=== PATIENT | female | born 1985 | race Caucasian/White ===

== ENCOUNTER 2021-02-05 17:46 | Emergency (ER) | payer OTHER ==
[~2021-02-05 17:46] MED LIST: FLAGYL500 MG PO
[2021-02-05] MEDS ORDERED: NORFLEX 100 MG100 MG PO (18:22)
[2021-02-05] MEDS ORDERED: PREDNISONE50 MG PO (18:22)
== END 2021-02-05 19:17 | disposition home or self-care (01) ==
LOC: ER1 17:46
DX: M54.41 Lumbago with sciatica, right side (principal); Z88.0 Allergy status to penicillin; F17.210 Nicotine dependence, cigarettes, uncomplicated; Z20.822 Contact with and (suspected) exposure to COVID-19
CPT/HCPCS: 96372; 99283; J1885; J2930; U0002

== ENCOUNTER 2021-04-18 07:31 | Emergency (ER) | payer OTHER ==
[~2021-04-18 07:31] MED LIST changes: +NORFLEX 100 MG100 MG PO; +PREDNISONE50 MG PO
[2021-04-18] MEDS ORDERED: DIFLUCAN150 MG PO (08:36)
[2021-04-18] MEDS ORDERED: OMNICEF 300 MG300 MG PO (08:52)
[2021-04-18] MEDS ORDERED: FLAGYL500 MG PO (08:52)
[2021-04-19 23:09] LABS: CHLAMYDIA TRACHOMATIS, NAA Negative (Negative); NEISSERIA GONORRHOEAE, NAA Negative (Negative)
== END 2021-04-18 09:20 | disposition home or self-care (01) ==
LOC: ER1 07:31
PROVIDERS: Physician Assistant
DX: N76.0 Acute vaginitis (principal); N39.0 Urinary tract infection, site not specified; B96.89 Other specified bacterial agents as the cause of diseases classified elsewhere; Z20.2 Contact with and (suspected) exposure to infections with a predominantly sexual mode of transmission
CPT/HCPCS: 81001; 87077; 87086; 87186; 87210; 96372; 99283; J0696

== ENCOUNTER 2021-12-24 16:53 | Emergency (ER) | payer OTHER ==
[~2021-12-24 16:53] MED LIST changes: +AMOX TR-K CLV1 EAC4 PO; +DIFLUCAN150 MG PO; +KEPPRA 500 MG500 MG PO; +OMNICEF 300 MG300 MG PO
[2021-12-24 19:40] LABS: HEMOGLOBIN 12.9 gm/dl (12.3-15.3); RED BLOOD COUNT 4.77 M/UL (4.00-5.10); WHITE BLOOD COUNT 10.9 K/UL (4.5-11.0)
[2021-12-24 20:06] LABS: BUN/CREATININE RATIO 23 (0-10)
== END 2021-12-24 21:20 | disposition short-term general hospital (02) ==
LOC: ER1 16:53
PROVIDERS: Family Medicine
DX: L03.213 Periorbital cellulitis (principal); J32.0 Chronic maxillary sinusitis; K04.7 Periapical abscess without sinus; F17.200 Nicotine dependence, unspecified, uncomplicated
CPT/HCPCS: 80053; 85025; 96374; 96375; 96376; 99284; J2270; J2405; J2543

== ENCOUNTER 2022-03-22 14:53 | Emergency (ER) | payer OTHER ==
[2022-03-22 16:33] LABS: HEMOGLOBIN 12.2 gm/dl (12.3-15.3); WHITE BLOOD COUNT 7.9 K/UL (4.5-11.0)
[2022-03-22 16:50] LABS: BUN/CREATININE RATIO 25 (0-10)
== END 2022-03-22 19:45 | disposition home or self-care (01) ==
LOC: ER1 14:53
PROVIDERS: Preventive Medicine Occupational Medicine
DX: M46.44 Discitis, unspecified, thoracic region (principal); M46.24 Osteomyelitis of vertebra, thoracic region; F17.200 Nicotine dependence, unspecified, uncomplicated
CPT/HCPCS: 80053; 81001; 83690; 85025; 85652; 86140; 87086; 96365; 96366; 96375; 96376; 99284; C9113; J0692; J1170; J2405; J3370; J7030; Q9967

== ENCOUNTER 2022-04-09 13:37 | Emergency (ER) | payer OTHER ==
[~2022-04-09] VITALS: Ht 182.9 cm; Wt 99.3 kg
[~2022-04-09 13:37] MED LIST changes: +GABAPENTIN300 MG PO
[2022-04-09 16:49] LABS: HEMOGLOBIN 10.4 gm/dl (12.3-15.3); RED BLOOD COUNT 4.26 M/UL (4.00-5.10); WHITE BLOOD COUNT 6.1 K/UL (4.5-11.0)
[2022-04-09 17:09] LABS: BUN/CREATININE RATIO 31 (0-10)
[2022-04-10] MEDS ORDERED: DAPTOMYCIN IV (12:52)
[2022-04-10] MEDS ORDERED: MIRALAX 119 GR119 GM PO (12:53)
[2022-04-10] MEDS ORDERED: MEROPENEM1 GM IV (12:53)
[2022-04-10] MEDS ORDERED: FAMOTIDINE20 MG PO (12:55)
[2022-04-10] MEDS ORDERED: ROXICODONE5 MG PO (12:55)
[2022-04-10] MEDS ORDERED: DOCUSATE SODIU250 MG PO (12:56)
[2022-04-10 15:08] LABS: HEMOGLOBIN 9.9 gm/dl (12.3-15.3); RED BLOOD COUNT 4.07 M/UL (4.00-5.10); WHITE BLOOD COUNT 5.5 K/UL (4.5-11.0)
[2022-04-10 15:36] LABS: BUN/CREATININE RATIO 38 (0-10)
[2022-04-11 08:32] LABS: HEMOGLOBIN 10.4 gm/dl (12.3-15.3); RED BLOOD COUNT 4.23 M/UL (4.00-5.10)
[2022-04-11 09:00] LABS: BUN/CREATININE RATIO 43 (0-10)
== END 2022-04-11 14:10 | disposition admitted as inpatient to this hospital (09) ==
LOC: ER1 13:37
PROVIDERS: Physician Assistant; Preventive Medicine Occupational Medicine
DX: M46.46 Discitis, unspecified, lumbar region (principal); M86.9 Osteomyelitis, unspecified; K59.00 Constipation, unspecified; Z86.59 Personal history of other mental and behavioral disorders
CPT/HCPCS: 51702; 72128; 72131; 80053; 81001; 83605; 85025; 86140; 87086; 96374; 96375; 96376; 99285; J0692; J0878; J1100; J1170; J2185; J2270; J2405; J3370; J7070